=== PATIENT | female | born 1995 | race Caucasian/White ===

== ENCOUNTER 2018-06-09 18:52 | Emergency (ER) | payer BC ==
[~2018-06-09] VITALS: Ht 157.5 cm; Wt 78.9 kg
[2018-06-09 19:57] LABS: HEMATOCRIT 40.8 % (36.0-46.0); HEMOGLOBIN 14.7 G/DL (11.9-15.5); MCH 32.9 PG (29.0-34.0); MCV 91.3 FL (83-99); PLATELET COUNT 281 K/uL (156-360); RBC DIS.WIDTH-CV 12.4 % (11.8-14.6); RBC DIS.WIDTH-SD 41.1 % (39-53); RED BLOOD COUNT 4.47 M/uL (3.80-5.20); WHITE BLOOD COUNT 8.9 K/uL (4.1-10.2)
[2018-06-09 20:03] LABS: ALBUMIN 4.5 g/dL (3.2-4.8)
[2018-06-09 20:04] LABS: CHLORIDE 108 mEq/L (99-109); POTASSIUM 3.8 mEq/L (3.7-5.4); SODIUM 139 mEq/L (136-147)
[2018-06-09 20:06] LABS: GLUCOSE 81 mg/dL (70-99); TOTAL PROTEIN 7.5 g/dL (6.4-8.3)
[2018-06-09 20:08] LABS: TOTAL BILIRUBIN 0.4 mg/dL (0.0-1.0)
[2018-06-09 20:09] LABS: ALKALINE PHOSPHATASE 51 IU/L (3-129)
[2018-06-09 20:10] LABS: CREATININE 0.8 mg/dL (0.6-1.3); GFR ESTIMATE (CALCULATED) > 59 mL/min/
[2018-06-09 20:11] LABS: AST (GOT) 22 IU/L (2-34)
[2018-06-09 20:12] LABS: ALT (GPT) 34 IU/L (3-49)
[2018-06-09 20:26] LABS: UREA NITROGEN (BUN) 12 mg/dL (9-23)
[2018-06-09] MEDS ORDERED: IMODIUM A-D2 M2 PO (21:02)
[2018-06-09] MEDS ORDERED: BENTYL10 MG PO (21:14)
[2018-06-09] MEDS ORDERED: ZOFRAN ODT4 MG PO (21:14)
[2018-06-09 21:49] VITALS: BP 119/86
== END 2018-06-09 21:51 | disposition home or self-care (01) ==
LOC: EME 18:52
PROVIDERS: Nurse Practitioner Family
DX: A08.4 Viral intestinal infection, unspecified (principal); Z90.49 Acquired absence of other specified parts of digestive tract; F17.200 Nicotine dependence, unspecified, uncomplicated
CPT/HCPCS: 80053; 83630; 85027; 99281; 99284; J7030